=== PATIENT | male | born 1945 | race Caucasian/White ===

== ENCOUNTER → 2017-06-27 | Outpatient (CLI) | payer OTHER ==
--- NOTE | 2017-07-10 23:31 | ONC ---
[address] [address] RADIATION ONCOLOGY NOTE Name: DAVID VEGA Cherie Room: [facility]#: [id number] Admission: 06/27/17 Attend Phys: Xavier Alonzo MD Discharge: Date of : 41 Report #: [id number] THIS REPORT FOR: //name// CC: Xavier Bender MD DATE OF SERVICE: 06/27/2017 REFERRING PHYSICIANS: Eddy Shore MD; Tyrese Orozco MD; and Jose Antonio Bender MD. [facility] phone is [phone]. PRIMARY SITE AND HISTOPATHOLOGY: The patient received definitive radiation therapy for a stage II, [id number], invasive bladder cancer. Radiation treatments were completed on 03/15/2015. INTERVAL NOTE: The patient is emptying his bladder well. He had a cystoscopy by his urologist, Dr. Orozco on 06/11/2017 and the areas of erythema in the bladder appeared improved compared to last time and it was sent for cytology, and there was no evidence of recurrent cancer. Overall, he felt like he was doing well. He has a good appetite. He is emptying his bladder well. He denied having any hematuria. MEDICATIONS: Include aspirin, fluoxetine, metformin, and glimepiride. SOCIAL HISTORY: The patient is retired. Cigarettes: he smoked 1 pack per day for about 35 years, he quit smoking in 1998. REVIEW OF SYSTEMS: GENITOURINARY: He felt like he was emptying his bladder well, he has nocturia of 0-1 time at night. GASTROINTESTINAL: He has about usually 1 bowel movement a day. He has a good appetite. PHYSICAL EXAMINATION: VITAL SIGNS: The patient weighed 234.2 pounds on 06/27/2017 and he was 234.2 pounds on 12/23/2016; on 06/27/2017, blood pressure was 119/80, pulse 72, and respirations 22. LYMPH NODES: He had no cervical, supraclavicular lymphadenopathy. HEART: Had a regular rate and rhythm without murmur. LUNGS: were clear to auscultation. ABDOMEN: Not tender. Spleen was not palpable. Liver was at the costal margin. LABORATORY DATA: From 06/23/2017, white blood cell count 5.2, hemoglobin 14.5, platelets 165,000. Sodium 140, potassium 4.2, BUN 13, creatinine 1.0[place] [address] RADIATION ONCOLOGY NOTE Name: DAVID VEGA Room: [facility]#: [id number] Admission: 06/27/17 Attend Phys: Xavier Alonzo MD Discharge: Date of : 41 Report #: [id number]. RADIOLOGIC DATA: The patient had a chest, abdomen, and pelvic CT on 06/23/2017, which showed stable post-treatment changes of the bladder with no evidence of metastatic disease. He had a 0.4 cm mucosal based density in the distal left mainstem bronchus. ASSESSMENT AND PLAN: 1. History of bladder cancer- There is no evidence of bladder cancer at this time. He indicated he is seeing his urologist in about 4 months and I will order a complete blood count, complete metabolic panel and a chest, abdomen and pelvic CT around that time and have the patient schedule a follow up appointment with me afterwards. 2. Nodular density in the distal mainstem bronchus- The radiology Report indicates this is probably a mucus plug versus a polyp, so he will be referred to the atmospheric physics professor, Dr. Huitron, or his colleagues to follow up on that issue. He is having a chest, abdomen, and pelvic CT in about 4-5 months and he will be asked to schedule a follow up appointment with me afterwards. 3. Diabetes- The patient takes glimepiride and metformin, and that is managed by his referring physicians. 4. History of depression- The patient takes fluoxetine, and that is managed by his referring physicians. Thank you for allowing me to participate in the care of this patient. <ELECTRONICALLY SIGNED> By: Xavier Alonzo MD 07/10/17 2331 [id number] [id number] Alonzo MD /nt
== END ==
LOC: M.RTH 00:36
DX: Z08 Encounter for follow-up examination after completed treatment for malignant neoplasm (principal); E11.9 Type 2 diabetes mellitus without complications; R91.1 Solitary pulmonary nodule; Z87.891 Personal history of nicotine dependence; Z85.51 Personal history of malignant neoplasm of bladder

== ENCOUNTER → 2017-12-17 | Outpatient (CLI) | payer OTHER ==
--- NOTE | 2017-12-31 23:57 | ONC ---
[address] [address] RADIATION ONCOLOGY NOTE Name: DAVID VEGA Room: [facility]#: [id number] Admission: 12/17/17 Attend Phys: Xavier Alonzo MD Discharge: Date of : 41 Report #: [id number] THIS REPORT FOR: //name// CC: Xavier Orozco MD DATE OF SERVICE: 12/17/2017 REFERRING PHYSICIANS: Tyrese Orozco MD; Eddy Shore MD; Jose Antonio Bender MD. [facility] phone is [phone]. PRIMARY SITE AND HISTOPATHOLOGY: The patient received definitive radiation therapy for a stage II, [id number], invasive bladder cancer. Radiation treatments were completed on 03/15/2015. INTERVAL NOTE: The patient is emptying his bladder well. He said he had a cystoscopy by his urologist around October 2017 and that there was no clear evidence of any recurrent cancer. MEDICATIONS: Include vitamin D, vitamin B, potassium, metformin, glimepiride, Trulicity, fluoxetine and aspirin. SOCIAL HISTORY: The patient is retired. Cigarettes: he smoked about 1 pack per day for about 35 years. He quit smoking in 1998. REVIEW OF SYSTEMS: GENITOURINARY: He felt like he was emptying his bladder well. He has nocturia 0-1 times a night. GASTROINTESTINAL: He has about 1-2 bowel movements a day. He is trying to lose weight voluntarily. PHYSICAL EXAMINATION: VITAL SIGNS: The patient weighed 228.8 pounds on 12/17/2017 and 234.2 pounds on 06/27/2017. On 12/17/2017, blood pressure [id number]/77, pulse 67, respirations 18, oxygen saturation 97% on room air. LYMPH NODES: He had no palpable cervical or supraclavicular lymphadenopathy. HEART: Had a regular rate and rhythm without murmur. LUNGS: were clear to auscultation. ABDOMEN: Not tender. Spleen was not palpable. Liver was at the costal margin. LABORATORY DATA: From 12/09/2017, white blood cell count was 5.3, hemoglobin 14.0, platelets 174,000. BUN 14, creatinine 0.89. Sodium 142, potassium 4.2 and AST was 16, [place] 18[place] [address] RADIATION ONCOLOGY NOTE Name: DAVID VEGA Cherie Room: [facility]#: [id number] Admission: 12/17/17 Attend Phys: Xavier Alonzo MD Discharge: Date of : 41 Report #: [id number] RADIOLOGIC DATA: From 06/23/2017, there is no evidence of any metastatic disease or recurrent disease in the chest, abdomen and pelvis. ASSESSMENT AND PLAN: 1. History of bladder cancer- There is no evidence of bladder cancer at this time. He says he is scheduled to see his urologist, Dr. Orozco around February 2018. A requisition was made for a complete blood count, complete metabolic panel, chest, abdomen and pelvic CT in June 2018. He was asked to schedule a follow up appointment to see me afterwards. 2. Diabetes- The patient takes glimepiride, metformin and that is managed by his referring physicians. 3. History of depression- The patient takes fluoxetine and that is managed by his referring physicians. Thank you for allowing me to participate in the care of this patient. <ELECTRONICALLY SIGNED> By: Xavier Alonzo MD 12/31/17 2357 [id number] [id number] Alonzo MD /nt
== END ==
LOC: M.RTH 11-26 09:30
DX: Z09 Encounter for follow-up examination after completed treatment for conditions other than malignant neoplasm (principal); E11.9 Type 2 diabetes mellitus without complications; F32.9 Major depressive disorder, single episode, unspecified; Z85.51 Personal history of malignant neoplasm of bladder

== ENCOUNTER → 2018-06-12 | Outpatient (CLI) | payer OTHER ==
--- NOTE | 2018-06-14 02:47 | ONC ---
[address] [address] RADIATION ONCOLOGY NOTE Name: DAVID VEGA Room: [facility]#: [id number] Admission: 06/12/18 Attend Phys: Xavier Alonzo MD Discharge: Date of : 41 Report #: [id number] THIS REPORT FOR: //name// CC: Xavier Orozco MD DATE OF SERVICE: 06/12/2018 REFERRING PHYSICIANS: Tyrese Orozco MD. Eddy Shore MD. Jose Antonio Bender MD [facility] phone is [phone]. PRIMARY SITE AND HISTOPATHOLOGY: The patient received definitive radiation therapy for a stage II, T2b N0 M0, invasive bladder cancer. Radiation treatments were completed on 03/15/2015. INTERVAL NOTE: The patient is emptying his bladder well. He has a cystoscopy about every 3-6 months. He says he is scheduled to see his urologist next month. MEDICATIONS: Include vitamin D, vitamin B, vitamin K, metformin, Trulicity, fluoxetine, aspirin. SOCIAL HISTORY: The patient is retired. Cigarettes: he smoked about 1 pack a day for about 35 years. He quit smoking in 1998. REVIEW OF SYSTEMS: GENITOURINARY: Feels like he is emptying his bladder well. He has rare nocturia. GASTROINTESTINAL: He has about 1-2 bowel movements a day and he has a good appetite. PHYSICAL EXAMINATION: VITAL SIGNS: The patient weighed 228.6 pounds on 06/12/2018; 228.8 pounds on 12/07/2017, and on 06/12/2018 blood pressure was 157/75, pulse 70, oxygen saturation 95%, respirations 18. LYMPH NODES: He had no palpable cervical or supraclavicular lymphadenopathy. HEART: Had a regular rate and rhythm without murmur. LUNGS: were clear to auscultation. ABDOMEN: Not tender. Spleen was not palpable. Liver was at the costal margin. LABORATORY DATA: From 06/05/2018 at [facility], white blood cell count was 5.4, hemoglobin 14.5, platelets 171,000. Sodium 139, potassium 4.1, BUN 14, creatinine 0.9, SGOT was 18, SGPT was 31[place] [address] RADIATION ONCOLOGY NOTE Name: GARYDAVID Room: [facility]#: [id number] Admission: 06/12/18 Attend Phys: Xavier Alonzo MD Discharge: Date of : 41 Report #: [id number] RADIOLOGIC DATA: The patient had a chest, abdomen, and pelvic CT scan performed on 06/05/2018 and that revealed some non-distention of the bladder with possible post-treatment changes and a 0.6 cm calculus in the left lateral urinary bladder wall, a stable small density around the distal left mainstem bronchus, which was similar in size to its previous exam on 06/23/2017. Mild hepatic steatosis. ASSESSMENT AND PLAN: 1. History of bladder cancer- There is no evidence of bladder cancer at this time. The patient follows up regularly with his urologist, Dr. Orozco, who he says he is seeing next month. I asked my nurse to request some more recent notes from Dr. Orozco. Lab work was ordered in about 6 months. The patient was asked to schedule a follow up appointment to see me afterwards. 2. Diabetes- The patient takes glimepiride, metformin and that is managed by his referring physician. 3. History of depression- The patient takes fluoxetine and that is managed by his referring physicians. Thank you for allowing me to participate in the care of this patient. <ELECTRONICALLY SIGNED> By: Xavier Alonoz MD 06/14/18 0247 1133 [id number] Alonzo MD /nt
== END ==
LOC: M.RTH 10:15
DX: Z08 Encounter for follow-up examination after completed treatment for malignant neoplasm (principal); C67.9 Malignant neoplasm of bladder, unspecified; E11.9 Type 2 diabetes mellitus without complications; F32.9 Major depressive disorder, single episode, unspecified

== ENCOUNTER → 2018-12-18 | Outpatient (CLI) | payer OTHER ==
--- NOTE | ~2018-12-18 | ONC ---
[address] [address] RADIATION ONCOLOGY NOTE Name: GARYDAVID L Room: [facility]#: [id number] Admission: 12/18/18 Attend Phys: Xavier Alonzo MD Discharge: Date of : 41 Report #: [id number] THIS REPORT FOR: //name// CC: Xavier Shore DATE OF SERVICE: 12/18/2018 RADIATION ONCOLOGY FOLLOWUP NOTE REFERRING PHYSICIANS: Dr. Matthews, Tyrese Orozco MD., and Dr. hSore [facility] phone is [phone]. PRIMARY SITE AND HISTOPATHOLOGY: The patient received definitive radiation therapy for stage 2 T2b N0 M0 invasive bladder cancer. Radiation treatments were completed on 03/15/2015. INTERVAL NOTE: The patient feels like he is emptying his bladder well. He has a cystoscopy about every [address] Orozco said he had one in 08/2018, which was unremarkable. He has had 1 bowel movement a day. He said that he had a myocardial infarction around 12/01/2018, had a stent placed. Continues to follow up with his sales rep, Dr. Matthews. MEDICATIONS: Include aspirin, carvedilol, Plavix, Zetia, fluoxetine, glimepiride, lisinopril, metformin. SOCIAL HISTORY: The patient is retired. Cigarettes, he smoked about a pack a day for about 35 years. He quit smoking in 1998. REVIEW OF SYSTEMS: GENITOURINARY: He is emptying his bladder well. He has rare nocturia. GASTROINTESTINAL: He has 1-2 bowel movements a day and has a good appetite. PHYSICAL EXAMINATION: VITAL SIGNS: The patient's weight was 225.2 pounds on 12/18/2018, 228.6 pounds on 06/22/2018. On 12/18/2018, blood pressure is 120/72, pulse 64, respirations 20, oxygen saturation was 97%. LYMPH NODES: He had no palpable cervical or supraclavicular lymphadenopathy. HEART: Had a regular rate and rhythm without murmur. LUNGS: Clear to auscultation. LABORATORY DATA: From 12/03/2018, sodium 141, potassium 4.0, BUN 12, creatinine 1.0. White blood cell count was 5.4, hemoglobin 15.0, platelets were 153,000. RADIOLOGIC DATA: He had a chest, abdomen and pelvic CT on 06/05/2018 [place] [address] RADIATION ONCOLOGY NOTE Name: DAVID VEGA Room: [facility]#: [id number] Admission: 12/18/18 Attend Phys: Xavier Alonzo MD Discharge: Date of : 41 Report #: [id number] showed some moderate thickening of the bladder wall, which could be due to nondistention and post-treatment changes. ASSESSMENT AND PLAN: 1. History of bladder cancer. The patient indicated he is seeing his urologist in 02/2019 and he had lab work ordered as well as a chest, abdomen, and pelvic CT around 06/2019, he was asked to schedule a followup appointment to see me afterwards. 2. Diabetes. He takes metformin that is managed by his referring physicians. 3. Hyperlipidemia. The patient takes Crestor that is managed by his referring physicians. Thank you for allowing me to participate in the care of this patient. By: 1423 [id number] Alonzo MD /basilia
== END ==
LOC: M.RTH 04:52
DX: Z08 Encounter for follow-up examination after completed treatment for malignant neoplasm (principal); E11.9 Type 2 diabetes mellitus without complications; E78.5 Hyperlipidemia, unspecified; Z85.51 Personal history of malignant neoplasm of bladder